=== PATIENT | male | born 1995 | race Caucasian/White ===

== ENCOUNTER 2020-10-21 07:54 | Emergency (ER) | payer OTHER ==
[~2020-10-21 07:54] MED LIST: CLEOCIN300 MG PO; HUMALOG100 UNIT/3 SC; HUMULIN R100 UNIT/1 SC; IBUPROFEN800 MG PO; NARCAN4 MG INH; NORCO 5-325 TA1 EACH PO; NOVOLOG MI100 UNIT/3 SC
[2020-10-21] MEDS ORDERED: IBUPROFEN800 MG PO (08:38)
== END 2020-10-21 08:51 | disposition home or self-care (01) ==
LOC: FER 07:54
DX: S63.502A Unspecified sprain of left wrist, initial encounter (principal); S00.81XA Abrasion of other part of head, initial encounter; E11.9 Type 2 diabetes mellitus without complications; Y04.2XXA Assault by strike against or bumped into by another person, initial encounter; Y92.009 Unspecified place in unspecified non-institutional (private) residence as the place of occurrence of the external cause
CPT/HCPCS: 73110